=== PATIENT | male | born 1995 | race African-American/Black ===

== ENCOUNTER 2018-08-22 09:29 | Observation (INO) | payer OTHER ==
--- NOTE | 2018-08-21 11:01 | PDHPUP ---
History & Physical Update H&P update statement: This history and physical update is based on an assessment of the patient which was completed after admission or registration (within 24 hours), but prior to the surgery/procedure. H&P update: H&P reviewed & patient examined
[2018-08-22] MEDS ORDERED: DEXAMETHASONE 10 MG/ML VIAL IVP ONE (09:49)
[2018-08-22] MEDS ORDERED: ceFAZolin 2 GM/DEXTROSE 100 ML IV ONE (09:49)
[2018-08-22] MEDS ORDERED: LR 1,000 ML IV ONE (09:51)
[2018-08-22] MEDS ORDERED: MIDAZOLAM 2 MG/2 ML VIAL IVP ONE (10:28)
--- NOTE | 2018-08-22 10:28 | PDANEPAE ---
ANE History of Present Illness chronic pharyngitis, CHARLES ANE Past Medical History - Cardiovascular History Hx Hypertension: No Hx Arrhythmias: No Hx Chest Pain: No Hx Coronary Artery / Peripheral Vascular Disease: No Hx CHF / Valvular Disease: No Hx Palpitations: No - Pulmonary History Hx COPD: No Hx Asthma/Reactive Airway Disease: No Hx Recent Upper Respiratory Infection: No Hx Oxygen in Use at Home: No Hx Sleep Apnea: No Sleep Apnea Screening Result - Last Documented: Positive Pulmonary History Comment: CHARLES does not use CPAP - Neurologic History Hx Cerebrovascular Accident: No Hx Seizures: No Hx Dementia: No - Endocrine History Hx Diabetes: No - Renal History Hx Renal Disorders: No - Liver History Hx Hepatic Disorders: No - Neurological & Psychiatric Hx Hx Neurological and Psychiatric Disorders: No - Cancer History Hx Cancer: No - Congenital Disorder History Hx Congenital Disorders: No - GI History Hx Gastrointestinal Disorders: No - Other Health History Other Health History: chronic sinus infection - Chronic Pain History Chronic Pain: No - Surgical History Prior Surgeries: shoulder surgery ANE Review of Systems Review of Systems: - Exercise capacity METS (RN): 6 METS ANE Patient History - Allergies Allergies/Adverse Reactions: shellfish derived Allergy (Verified 08/11/18 12:57) Hives - Home Medications Home Medications: NK [No Known Home Meds] 08/11/18 [Last Taken Unknown] - NPO status NPO Since - Liquids (Date): 08/22/18 NPO Since - Liquids (Time): 06:30 NPO Since - Solids (Date): 08/21/18 NPO Since - Solids (Time): 19:00 - Smoking Hx Smoking Status: Never smoked - Family Anes Hx Family Hx Anesthesia Complications: none ANE Labs/Vital Signs - Vital Signs Blood Pressure: 161/99 Heart Rate: 94 Respiratory Rate: 17 O2 Sat (%): 95 Height: 193.04 cm Weight: 122.47 kg ANE Physical Exam - Airway Neck exam: increased neck circumference Mallampati Score: Class 2 Mouth exam: normal dental/mouth exam - Pulmonary Pulmonary: no respiratory distress, no rales or rhonchi - Cardiovascular Cardiovascular: regular rate and rhythym, no murmur, rub, or gallop - ASA Status ASA Status: II ANE Anesthesia Plan Anesthesia Plan: general endotracheal anesthesia Total IV Anesthesia: No
[2018-08-22] MEDS ORDERED: KETOROLAC 30 MG/1 ML SDV ONE (10:33)
[2018-08-22] MEDS ORDERED: DEXAMETHASONE 4 MG/ML VIAL ONE (10:33)
[2018-08-22] MEDS ORDERED: ONDANSETRON 4 MG/2 ML VIAL ONE (10:33)
[2018-08-22] MEDS ORDERED: LIDOCAINE HCL 160 MG/4 ML LTA KIT TP ONE (10:33)
[2018-08-22] MEDS ORDERED: LIDOCAINE 2% 100 MG/5 ML SYR ONE (10:33)
[2018-08-22] MEDS ORDERED: ROCURONIUM 100 MG/10 ML VIAL ONE (10:33)
[2018-08-22] MEDS ORDERED: MIDAZOLAM 2 MG/2 ML VIAL ONE (10:33)
[2018-08-22] MEDS ORDERED: fentaNYL 250 MCG/5 ML INJ ONE (10:33)
[2018-08-22] MEDS ORDERED: PROPOFOL 200 MG/20 ML VIAL ONE (10:34)
[2018-08-22] MEDS ORDERED: HYDROmorphONE/DILAUDID 2 MG/ML INJ ONE ×2 (11:21→12:30)
[2018-08-22] MEDS ORDERED: SUGAMMADEX SODIUM 200 MG/2 ML VIAL IVP ONE (11:22)
[2018-08-22] MEDS ORDERED: NALOXONE HCL 0.4 MG/ML INJ IVP PRN (12:03)
[2018-08-22] MEDS ORDERED: MEPERIDINE 25 MG/0.5 ML AMP IVP PRN (12:03)
[2018-08-22] MEDS ORDERED: PROMETHAZINE HCL 25 MG/ML INJ IVP PRN (12:03)
[2018-08-22] MEDS ORDERED: HYDROmorphONE/DILAUDID 2 MG/ML INJ IVP PRN (12:03)
[2018-08-22] MEDS ORDERED: oxyCODONE IR 5 MG TAB PO PRN (12:03)
[2018-08-22] MEDS ORDERED: ACETAMINOPHEN 500 MG TAB PO PRN (12:03)
[2018-08-22] MEDS ORDERED: fentaNYL 100 MCG/2 ML INJ ONE (12:13)
[2018-08-22] MEDS: fentaNYL 100 MCG/2 ML INJ IVP PRN ×2 (12:18→12:23)
[2018-08-22] MEDS ORDERED: ONDANSETRON 4 MG/2 ML VIAL IVP PRN (12:23)
[2018-08-22] MEDS ORDERED: ACETAMINOPHEN 160 MG/5 ML UDCUP PO PRN (12:23)
[2018-08-22] MEDS ORDERED: D5W LR 1,000 ML IV SCH (12:30)
--- NOTE | 2018-08-22 12:39 | POSTANESTH ---
Post Anesthetic Evaluation Cardiovascular Status: Normal, Stable Respiratory Status: Normal, Stable Level of Consciousness/Mental Status: Can Participate in Eval, Moderately Sleepy Pain Control: Adequate, Prn Tx Ordered Nausea/Vomiting Control: Adequate, Prn Tx Ordered Complications Possibly Related to Anesthesia: None Noted
[2018-08-22] MEDS ORDERED: ceFAZolin 0.5 GM in NS 50 ML IV SCH (14:00)
[2018-08-22] MEDS: HYDROCOD/APAP 7.5/325 IN 15ML UDCUP PO PRN ×2 (15:21→20:47)
--- NOTE | 2018-08-22 17:17 | GOP ---
DATE OF OPERATION: 08/22/2018 SURGEON: Alberto Guevara MD ANESTHESIA: General. PREOPERATIVE DIAGNOSIS: Chronic tonsillitis with adenotonsillar hypertrophy and sleep-disordered mirian athing. POSTOPERATIVE DIAGNOSIS: Chronic tonsillitis with adenotonsillar hypertrophy and sleep-disordered br eathing. PROCEDURE PERFORMED: Adenotonsillectomy. FINDINGS: SPECIMENS: Bilateral tonsils. ESTIMATED BLOOD LOSS: Less than 25 mL. INDICATIONS: Chronic tonsillitis with adenotonsillar hypertrophy and sleep-disordered breathing. DESCRIPTION OF PROCEDURE: The patient is a 23-year-old male brought to the operating room where gene ral anesthesia was introduced and endotracheal intubation was performed. The patient was placed in a Rosalie position and a ring mouth gag inserted. A red rubber catheter was passed through the nose to h elp elevate the palate. The right tonsil was grasped with an Allis forceps and retracted medially. The spatula tip electrocautery was used to make an incision in the anterior tonsillar pillar exposing the tonsillar fossa. The tonsil was then dissected free of the tonsillar fossa from superior to inf erior. The same procedure was then performed on the left side. Bleeding was controlled with both tovar ction and electrocautery. The patient then had the nasopharynx examined and adenoid tissue identifie d, and suction electrocautery was used to disintegrate the adenoid tissue from the nasopharynx openin g up the choanae. Once this was done, the nasopharynx and tonsillar fossae bilaterally were examined with no bleeding note. The red rubber catheter and the mouth gag were then released for 1 minute an d then replaced, and any further bleeding controlled with suction electrocautery. The pharynx and na sopharynx were the irrigated and suctioned and the stomach was suctioned with an NG tube. The NG tub e, red rubber catheter, and mouth gag were removed, and the patient was awakened and extubated uneven tfully, and brought to the recovery room in stable condition where he was expected to do well postope ratively. The patient tolerated the procedure well. HISTORY: History is that of a 23-year-old gentleman with chronic tonsillitis and sleep-disordered br eathing with obstructive sleep apnea who has chronic adenotonsillar hypertrophy. Risks, benefits, in dications, options, and possible complications of this procedure were discussed at length with the leanna kirk prior to signing informed consent, and he was given a chance to have his questions answered. /[id number]/MODL
[2018-08-22] MEDS: DEXAMETHASONE 4 MG/ML VIAL IVP SCH ×2 (18:35→23:58)
[2018-08-22] MEDS: ceFAZolin 2 GM in D5W 100 ML IV SCH (18:35)
[2018-08-23] MEDS: ceFAZolin 2 GM in D5W 100 ML IV SCH ×2 (02:06→09:04)
[2018-08-23] MEDS: DEXAMETHASONE 4 MG/ML VIAL IVP SCH ×2 (05:28→11:35)
[2018-08-23 07:27] VITALS: BP 125/75
--- NOTE | 2018-08-23 08:45 | SOAPPROG ---
SOAP Progress Note Assessment/Plan: Assessment: pt s/p tonsillectomy. doing well. tolerating liquids and food. Plan: pt s/p tonsillectomy. discsused post op expectations. Sleep elevated if any difficulty breathing. Call if any concerns. 08/23/18 08:43 Objective: Vital Signs Temp Pulse Resp BP Pulse Ox 36.7 C 99 18 125/75 H 90 L 08/23/18 07:25 08/23/18 07:25 08/23/18 07:25 08/23/18 07:25 08/23/18 07:25 08/22/18 08/23/18 08/24/18 05:59 05:59 05:59 Intake Total 3234 Output Total 20 Balance 3214 - Pending Discharge Pending Discharge Within 24 Hours: Yes Pending Discharge Date: 08/24/18 Pending Discharge Time: 11:00 ICD10 Worksheet Patient Problems: Problems Problem Status Onset Tonsillar enlargement Acute - ICD10 Problem Qualifiers (1) Tonsillar enlargement
--- NOTE | 2018-08-25 07:39 | PDDCSUM ---
Discharge Summary Discharge Summary: pt s/p adenotonsillectomy. Oxygen desats overnight. pt stable pt discharged home in good condition. Instructed to sleep upright. Instructed on pain management. F/u in 2 weeks.
== END 2018-08-23 11:58 | disposition home or self-care (01) ==
LOC: F3E 09:29
PROVIDERS: ADMIT Otolaryngology; ATTEND Otolaryngology
PROC: 0CTPXZZ Resection of Tonsils, External Approach (ICD-10-PCS; principal; 2018-08-22 10:30)
DX: J35.3 Hypertrophy of tonsils with hypertrophy of adenoids (principal); G47.39 Other sleep apnea; R09.02 Hypoxemia
CPT/HCPCS: 42826; G0378; J0690; J1100; J1170; J1885; J2001; J2250; J2405; J2704; J3010